=== PATIENT | female | born 1970 | race Caucasian/White ===

== ENCOUNTER 2016-05-24 07:26 | Day surgery (SDC) | payer OTHER ==
[~2016-05-24] VITALS: Ht 167.6 cm; Wt 81.1 kg
[~2016-05-24 07:26] MED LIST: MAXALT10 MG PO; ULTRAM50 MG PO; ZANAFLEX4 M1 PO
[2016-05-24 08:29] VITALS: BP 117/58
[2016-05-24 08:50] LABS: POINT-OF-CARE METER ID UU14174212
[2016-05-24 14:01] LABS: POINT-OF-CARE METER ID UU13113675
[2016-05-24 14:45] VITALS: BP 109/63
[2016-05-24 15:50] VITALS: BP 111/55
[2016-05-24 16:30] VITALS: BP 119/64
== END 2016-05-24 16:46 | disposition home or self-care (01) ==
LOC: SDC 07:26
PROVIDERS: Neurological Surgery
DX: M54.17 Radiculopathy, lumbosacral region (principal); M51.26 Other intervertebral disc displacement, lumbar region; E11.9 Type 2 diabetes mellitus without complications; J45.909 Unspecified asthma, uncomplicated; M79.7 Fibromyalgia
CPT/HCPCS: 72020; 76000; 82948; 93005; J0690; J1040; J1100; J1170; J1885; J2250; J2405; J2710; J3010

== ENCOUNTER 2016-06-10 17:10 | Inpatient (IN) | payer OTHER ==
[~2016-06-10] VITALS: Ht 167.6 cm; Wt 81.9 kg
[2016-06-10] MEDS ORDERED: BACTRIM,SEPT1 TABLET PO (17:35)
[2016-06-10] MEDS ORDERED: VICODIN 5-3001 EACH PO (17:36)
[2016-06-10 17:46] VITALS: BP 115/56
[2016-06-10 18:16] LABS: POINT-OF-CARE METER ID UU14174212
[2016-06-10 22:20] LABS: POINT-OF-CARE METER ID UU13113675
[2016-06-10 23:45] VITALS: BP 121/57
[2016-06-11 06:14] LABS: HEMATOCRIT 33.6 % (36.0-46.0); MCH 29.8 PG (29.0-34.0); MCHC 32.7 G/DL (30.0-36.0); MCV 91.1 FL (83-99); PLATELET COUNT 289 K/uL (156-360); RBC DIS.WIDTH-CV 13.1 % (11.8-14.6); RBC DIS.WIDTH-SD 43.3 % (39-53)
[2016-06-11 06:27] LABS: RED BLOOD COUNT 3.69 M/uL (3.80-5.20); WHITE BLOOD COUNT 13.2 K/uL (4.1-10.2)
[2016-06-11 07:34] VITALS: BP 105/53
[2016-06-11 11:17] LABS: ERTH.SED.RATE 38 MM/HR (0-20)
[2016-06-11 16:30] VITALS: BP 146/63
[2016-06-12 00:03] VITALS: BP 112/55
[2016-06-12 06:24] LABS: GFR ESTIMATE (CALCULATED) > 59 mL/min/
[2016-06-12 07:59] VITALS: BP 96/59
[2016-06-12 16:41] VITALS: BP 115/57
[2016-06-12 23:32] VITALS: BP 103/57
[2016-06-13 07:42] VITALS: BP 101/55
[2016-06-13 08:40] VITALS: BP 101/55
[2016-06-13] MEDS ORDERED: VICODIN 5-3001 EACH PO (14:23)
[2016-06-13] MEDS ORDERED: HYDROCODON-ACE1 EAC7 PO (15:13)
== END 2016-06-13 16:33 | disposition home or self-care (01) | DRG 863 ==
LOC: SDC 17:10 → 2SOUTH 21:56 → 3EAST 23:40
PROVIDERS: Neurological Surgery
PROC: 0J9700Z Drainage of Back Subcutaneous Tissue and Fascia with Drainage Device, Open Approach (ICD-10-PCS; principal; 2016-06-10)
DX: T81.4XXA Infection following a procedure, initial encounter (principal); A49.01 Methicillin susceptible Staphylococcus aureus infection, unspecified site
CPT/HCPCS: 76937; 80202; 82565; 82948; 85027; 85651; 86140; 87070; 87075; 87077; 87147; 87186; 87205; G0378; J0330; J0690; J1100; J1170; J1580; J1885; J2175; J2250; J2405; J3010; J3370; J3480

== ENCOUNTER 2017-11-09 21:04 | Emergency (ER) | payer OTHER ==
[~2017-11-09] VITALS: Ht 167.6 cm; Wt 89.6 kg
[~2017-11-09 21:04] MED LIST changes: +BACTRIM,SEPT1 TABLET PO; +HYDROCODON-ACE1 EAC7 PO; +VICODIN 5-3001 EACH PO
[2017-11-10] MEDS ORDERED: NORCO 5/3251 TABLET PO (00:47)
[2017-11-10] MEDS ORDERED: VALIUM5 MG PO (00:47)
[2017-11-10] MEDS ORDERED: LIDOCAINE700 MG TP (00:47)
[2017-11-10 01:00] VITALS: BP 125/66
== END 2017-11-10 01:01 | disposition home or self-care (01) ==
LOC: EME 21:04
DX: S09.90XA Unspecified injury of head, initial encounter (principal); T14.8XXA Other injury of unspecified body region, initial encounter; M54.2 Cervicalgia; M25.512 Pain in left shoulder; R11.0 Nausea; V49.40XA Driver injured in collision with unspecified motor vehicles in traffic accident, initial encounter; Y92.410 Unspecified street and highway as the place of occurrence of the external cause; R00.0 Tachycardia, unspecified; M47.892 Other spondylosis, cervical region; M48.02 Spinal stenosis, cervical region; Z87.891 Personal history of nicotine dependence
CPT/HCPCS: 70450; 72125; 73030; 99281; 99284; J1885